=== PATIENT | male | born 1960 | race African-American/Black ===

== ENCOUNTER 2017-04-27 21:34 | Emergency (ER) | payer BC ==
[~2017-04-27 21:34] MED LIST: CIPRO500 MG PO; HYDROCODONE BIT1 T12 PO; LIO10 PO; METFORMIN500 M1 PO; RANITIDINE150 M1 PO; TOP50 PO; VALSARTAN AND H1 TA3 PO; VICODIN1 TA1 PO
[2017-04-28 00:30] VITALS: BP 140/84
== END 2017-04-28 00:30 | disposition short-term general hospital (02) ==
LOC: ED 21:34
DX: H57.11 Ocular pain, right eye (principal); R11.0 Nausea; H53.149 Visual discomfort, unspecified; I10 Essential (primary) hypertension; E11.9 Type 2 diabetes mellitus without complications; E78.00 Pure hypercholesterolemia, unspecified; Z88.0 Allergy status to penicillin; Z88.8 Allergy status to other drugs, medicaments and biological substances
CPT/HCPCS: J1170

== ENCOUNTER 2018-02-28 14:14 | Observation (INO) | payer BC ==
[~2018-02-28] VITALS: Ht 180.3 cm; Wt 84.0 kg
[2018-02-28 15:29] LABS: CARBON DIOXIDE 29.5 mmol/L (21-32); CREATININE SERUM 1.7 mg/dL (0.7-1.3); POTASSIUM SERUM 4.2 mmol/L (3.5-5.1)
[2018-02-28 15:33] LABS: BILIRUBIN TOTAL 0.6 mg/dL (0.20-1.00); MAGNESIUM 2.2 mg/dL (1.8-2.4); TOTAL PROTEIN, SERUM 7.8 g/dL (6.4-8.2)
[2018-02-28 15:44] LABS: ALBUMIN 3.3 g/dL (3.4-5.0)
[2018-02-28 15:46] LABS: BASOPHIL % 0.1 % (0-2); PLATELET COUNT 183 x10^3mcL (130-400); RED CELL DISTRIBUTION WIDTH 12.8 % (11.5-14.5)
[2018-02-28 17:51] LABS: microscopic required? NO
[2018-02-28 18:15] LABS: urine erythrocyte NEGATIVE (NEGATIVE)
[2018-02-28 18:18] LABS: AMPHETAMINE QUAL UR NONE DETECTED (See below)
[2018-02-28 18:40] VITALS: BP 132/73
[2018-02-28 20:55] VITALS: Ht 180.3 cm; Wt 84.0 kg
[2018-02-28 21:31] VITALS: BP 119/68
[2018-03-01 05:39] VITALS: BP 105/57
[2018-03-01 06:44] LABS: BASOPHIL % 0.5 % (0-2); PLATELET COUNT 177 x10^3mcL (130-400); RED CELL DISTRIBUTION WIDTH 13.1 % (11.5-14.5)
[2018-03-01 06:57] LABS: CALCIUM 8.6 mg/dL (8.5-10.1); CARBON DIOXIDE 30.3 mmol/L (21-32); CREATININE SERUM 2.3 mg/dL (0.7-1.3); POTASSIUM SERUM 4.2 mmol/L (3.5-5.1)
[2018-03-01 09:06] VITALS: BP 102/70; BP 162/70
[2018-03-01] MEDS ORDERED: SKELAXIN PO (10:38)
[2018-03-01 12:29] VITALS: BP 102/70
[2018-03-01] MEDS ORDERED: TRAMADOL HCL50 MG PO (12:57)
[2018-03-01] MEDS ORDERED: NAPROSYN500 MG PO (12:58)
[2018-03-01] MEDS ORDERED: LACTULOSE10 GM/152 PO (12:59)
== END 2018-03-01 15:07 | disposition home or self-care (01) | DRG 552 ==
LOC: ED 14:14 → MU 16:42 → DU 16:42 → MU 16:42 → DU 18:46 → MU 03-01 05:39
PROVIDERS: Emergency Medicine; Internal Medicine Pulmonary Disease
DX: M62.830 Muscle spasm of back (principal); E11.9 Type 2 diabetes mellitus without complications; I10 Essential (primary) hypertension; E78.00 Pure hypercholesterolemia, unspecified; M47.896 Other spondylosis, lumbar region; K59.00 Constipation, unspecified; Z68.25 Body mass index [BMI] 25.0-25.9, adult
CPT/HCPCS: 83880; G0378; J1885; J2800; J7030; Q0092